=== PATIENT | female | born 1985 | race Caucasian/White ===

== ENCOUNTER 2018-08-19 10:00 | Outpatient (RCR) | payer OTHER ==
[~2018-08-19 10:00] MED LIST: ACET-1966 PO; AMO500 PO; AUG500 PO; CALC-598 PO; DOCU-202 PO; DOCU-416 PO; ETON1VAG7 VG; LEVO75TA68 PO; LOR5/325 PO; OXYC-854 PO; TAMO20TA24 PO; TOBOD OD; TOBOD OU; [UNRECOGNIZED DRUG - CODE] SQ
--- NOTE | 2018-08-27 15:41 | RADIOLOGY IMAGING REPORT ---
FACILITY: [facility] - [place] PATIENT NAME: Janette Gallardo : 1985 MR: [id number] V: [id number] EXAM DATE: ORDERING PHYSICIAN: AURA LIMA TECHNOLOGIST: Location: [facility] - [place] Patient: Janette Gallardo : 1985 Visit/Account:[id number] Date of Sevice: 08/27/2018 EXAMINATION: Ultrasound neck HISTORY: Lymphadenopathy. Stage II breast cancer, in remission. Left neck lump. Thyroidectomy 2016 for goiter. COMPARISON: None. FINDINGS: There are a few lymph nodes in the neck bilaterally, left greater than right. The nodes a re normal and shape with normal fatty rinku. The cortex of a few of the lymph nodes in the left neck is slightly hypoechoic, but the shape is normal. The largest node is a left level V node measuring 1 8 x 7 x 7 mm. IMPRESSION: A few scattered bilateral neck lymph nodes, left greater than right, the largest in the left level V region. A few of the left level V nodes are upper limits normal in size with slightly hypoechoic cor bina. These are likely reactive lymph nodes. In a patient with a history of breast cancer, continued follow-up is recommended, and if clinically indicated the largest node could be biopsied. Report Dictated By: Gissel Silverman MD at 08/27/2018 3:22 PM Report E-Signed By: Gissel Silverman MD at 08/27/2018 3:35 PM WSN:[id number]
== END 2018-09-23 ==
LOC: US 10:00 → EDSTATUS 08-27 14:04
PROVIDERS: ATTEND Internal Medicine
DX: R59.0 Localized enlarged lymph nodes (principal)